=== PATIENT | female | born 1960 | race Caucasian/White ===

== ENCOUNTER 2016-10-03 22:39 | Emergency (ER) | payer OTHER ==
[~2016-10-03] VITALS: Ht 157.5 cm; Wt 51.8 kg
[2016-10-03 22:41] VITALS: TEMP 36.3; Ht 157.5 cm; Wt 51.8 kg
[2016-10-03] MEDS ORDERED: MoRPHine SULFATE 10 MG/ML CARP/VIAL IM STA (22:53)
[2016-10-03] MEDS ORDERED: ASPI81TA28 PO (23:07)
[2016-10-03] MEDS ORDERED: IBUP600T44 PO (23:08)
[2016-10-03] MEDS ORDERED: MULT-506 PO (23:09)
--- NOTE | 2016-10-03 23:18 | EMERGENCY ROOM VISIT NOTE ---
History Report prepared by Desiree: Mikaela Maharaj Under the Supervision of: Dr. Ariel Young M.D. First contact with patient: 22:44 Chief Complaint: ARM PAIN Stated Complaint: LEFT ARM PAIN MOVING INTO FACE, HX OF NERVE DAMAGE History of Present Illness The patient is a 56 year old female who presents to the Emergency Room with complaints of worsening left arm pain for the past 2 months. The patient has had multiple surgeries bilaterally for carpal tunnel. She states that after her most recent surgery on her left wrist, she developed some nerve damage pain in her arm. She has been following up with Dr. To of neurology. She had an EMG done last month and has been taking ibuprofen for her pain since that procedure. The patient states that recently her pain has become much worse. She notes bruising and swelling to her arm that's spreading toward her face. Tonight she was experiencing some facial numbness. Movement of the left arm exacerbates her pain. The patient describes her pain as shooting and rates her pain as a 10/10 in severity. She states that her arm "feels like bugs crawling all through me." She has been unable to sleep due to pain. The patient denies ever injuring that arm. She has some degenerative disc changes in her cervical spine. She denies any other pains including abdominal pain or chest pain. Source of History: patient Onset: 2 months ago Position: arm (left) Symptom Intensity: 10/10 Quality: other (shooting) Timing: worsening Modifying Factors (Worsening): movement Associated Symptoms: + numbness (facial), No abdominal pain, No chest pain Review of Systems All systems have been listed, reviewed, and are negative other than those previously mentioned. Please see Additional Medical History Sheet. Past Medical & Surgical Medical Problems: (1) Carpal Tunnel Syndrome Surgical Problems: (1) No history of previous surgery Family History FH: cancer FH: diabetes mellitus FH: heart disease FH: hypertension Social History Smoking Status: Current Every Day Smoker Alcohol Use: occasionally Marital Status: single Occupation Status: unemployed Current/Historical Medications Scheduled Aspirin (Aspirin Ec), 81 MG PO DAILY Multivitamin (Multivitamin), 1 TAB PO DAILY Scheduled PRN Ibuprofen (Motrin), 200-600 MG PO DIRECTED PRN for Pain Allergies Coded Allergies: Indomethacin (Unverified Allergy, Unknown, HIVES, 10/03/16) Physical Exam Vital Signs Date Time Temp Pulse Resp B/P Pulse Ox O2 Delivery O2 Flow Rate FiO2 10/04/16 00:12 68 16 128/68 96 10/03/16 22:41 36.3 90 18 156/97 98 Room Air Physical Exam GENERAL: Patient awake, alert, oriented x 3. Patient follows commands. Patient does not appear toxic. Patient is adequately hydrated and well- nourished. SKIN: No erythema, pallor, cyanosis or rash HEENT: Normal head, pupils equal, reactive to light and accommodation. Ears normal. Oral cavity and posterior pharynx appear normal. Neck: Without adenopathy, no neck vein distention. Tenderness along the posterior cervicals spine, no step offs. LUNGS: Clear to auscultation. No wheezes, no rales, no rhonchi. HEART: No murmurs. No gallops. No rubs ABDOMEN: Soft and nontender. EXTREMITIES: Marked tenderness to the left biceps and triceps area, appears slightly swollen, patient does have FROM, sensation intact distally, circulation intact. No signs of trauma. No pedal or pretibial edema. No calf or thigh tenderness. NEUROLOGIC: Cranial nerves II-XII within normal limits. No gross motor sensory function deficits. Medical Decision & Procedures ER Provider Diagnostic Interpretation: I reviewed the records from the patient's most recent EMG and MRI. Medications Administered Medications (Trade) Dose Ordered Sig/Satinder Route Start Time Stop Time Status Last Admin Dose Admin Morphine Sulfate (MoRPHine SULFATE INJ) 8 mg NOW STAT IM 10/03/16 22:53 10/03/16 22:54 DC 10/03/16 22:58 8 MG Oxycodone/ Acetaminophen (Percocet 5/ 325MG Home Pack) 1 homepack UD ONCE PO 10/04/16 00:00 10/04/16 00:01 DC 10/04/16 00:09 1 HOMEPACK Ondansetron HCl (ZOFRAN ODT 4MG Home Pack) 1 homepack UD ONCE PO 10/04/16 00:00 10/04/16 00:01 DC 10/04/16 00:09 1 HOMEPACK ED Course 2244: Past medical records reviewed. The patient was evaluated in room B8. A complete history and physical examination was performed. 2253: Morphine sulfate 8 mg IM 2349: I reassessed the patient at this time. She is feeling better and resting comfortably. I discussed the results and treatment plan with the patient. I answered all pertaining questions that she had. She expressed understanding and verbalized agreement. The patient will be discharged home. She has a follow-up appointment with pain management tomorrow and she also has an upcoming appointment with neurosurgery. 0000: Zofran 4 mg PO 1 homepack, Percocet 5/325 mg PO 1 homepack Medical Decision Differential diagnoses includes cervical radiculopathy, muscular spasm. The patient is now here with severe pain in her left arm and some radiation into her neck and face. The patient does not appear to be having a stroke or TIA. Outpatient records were evaluated. She has a history of cervical radiculopathy with significant degenerative changes in her cervical spine. EMG was also performed. Patient is scheduled to see pain management tomorrow. The patient had significant relief with 1 intramuscular injection of morphine. Patient was given a home pack of Percocet and Zofran. Impression Primary Impression: Cervical radiculopathy Scribe Attestation The scribe's documentation has been prepared under my direction and personally reviewed by me in its entirety. I confirm that the note above accurately reflects all work, treatment, procedures, and medical decision making performed by me. Departure Information Dispostion Home / Self-Care Referrals No Doctor, Assigned (PCP) Forms HOME CARE DOCUMENTATION FORM, IMPORTANT VISIT INFORMATION Patient Instructions My [facility] Additional Instructions 1 Percocet every 4 hours as needed for moderate to severe pain. 1 Zofran every 4 hours as needed for nausea. Do not drive or operate machinery while taking Percocet. Follow-up with Dr. Lamar tomorrow.
[2016-10-04] MEDS ORDERED: ONDANSETRON HOME PACK 4MG OD TAB PO ONE
[2016-10-04] MEDS ORDERED: PERCOCET HOME PACK PO ONE
[2016-10-04 00:12] VITALS: BP 128/68; PULSE 68; O2SAT 96
== END 2016-10-04 00:09 | disposition home or self-care (01) ==
LOC: C.EDB 22:40
DX: M54.12 Radiculopathy, cervical region (principal); M79.602 Pain in left arm; M79.89 Other specified soft tissue disorders; R20.0 Anesthesia of skin; Z79.82 Long term (current) use of aspirin; Z82.49 Family history of ischemic heart disease and other diseases of the circulatory system; Z83.3 Family history of diabetes mellitus; F17.200 Nicotine dependence, unspecified, uncomplicated

== ENCOUNTER 2016-10-20 14:13 | Emergency (ER) | payer OTHER ==
[~2016-10-20] VITALS: Ht 157.5 cm; Wt 50.0 kg
[~2016-10-20 14:13] MED LIST: ASPI81TA28 PO; IBUP600T44 PO; MULT-506 PO
[2016-10-20 14:22] VITALS: TEMP 36.7; Ht 157.5 cm; Wt 50.0 kg
[2016-10-20] MEDS ORDERED: DIPHTHERIA/TETANUS/PERTUSSIS 0.5 ML SYR/VIAL IM. ONE (14:30)
[2016-10-20 15:09] VITALS: BP 151/93; PULSE 70; O2SAT 100
--- NOTE | 2016-10-20 21:41 | EMERGENCY ROOM VISIT NOTE ---
History First contact with patient: 14:32 Chief Complaint: TETANUS SHOT NEEDED Stated Complaint: NEED A TETANUS SHOT History of Present Illness The patient is a 56 year old female who presents to the Emergency Room with complaints of injuries after being attacked by a rooster 2 days ago. The patient reports that she was wearing shorts, and the rooster pecked and scratched her her legs. The patient does not recall when her last tetanus shot was, and presents for a tetanus booster. She denies any significant pain or increasing redness at the sites of injury. Review of Systems 10 system review was performed and was negative except for pertinent positives and negatives as indicated in history of present illness Past Medical/Surgical History Medical Problems: (1) Carpal Tunnel Syndrome Surgical Problems: (1) No history of previous surgery Family History FH: cancer FH: diabetes mellitus FH: heart disease FH: hypertension Social History Smoking Status: Current Every Day Smoker Alcohol Use: occasionally Marital Status: single Occupation Status: unemployed Current/Historical Medications Scheduled Aspirin (Aspirin Ec), 81 MG PO DAILY Multivitamin (Multivitamin), 1 TAB PO DAILY Allergies Coded Allergies: Indomethacin (Unverified Allergy, Unknown, HIVES, 10/20/16) Physical Exam Vital Signs Date Time Temp Pulse Resp B/P (MAP) Pulse Ox O2 Delivery O2 Flow Rate FiO2 10/20/16 15:09 70 18 151/93 100 10/20/16 14:22 36.7 88 16 172/100 97 Room Air Physical Exam CONSTITUTIONAL: Healthy and well nourished. Alert and oriented X 3 with positive affect. HEENT: Normocephalic, atraumatic. Pupils equal, round and reactive. NECK: Full active range of motion without discomfort. MUSCULOSKELETAL: Full range of motion of all joints without discomfort. INTEGUMENTARY: The patient has several abrasions and small superficial puncture wounds on the thighs and legs. No overriding erythema, fluctuance or drainage noted. NEUROLOGIC: No focal neurologic deficits noted. Medical Decision & Procedures Medications Administered Medications (Trade) Dose Ordered Sig/Satinder Route Start Time Stop Time Status Last Admin Dose Admin Diphtheria/ Pertussis/Tetanus Vacc (Adacel Inj) 0.5 ml ONCE ONCE IM. 10/20/16 14:30 10/20/16 14:31 DC 10/20/16 14:44 0.5 ML ED Course Patient history and physical exam were performed. Nurse's notes were reviewed. Vital signs were reviewed, showing an elevated blood pressure 172/100. The patient is otherwise afebrile. The patient was administered Adacel IM. The patient was encouraged to follow-up with her PCP for recheck of her blood pressure. She was also instructed to watch for any developing infection at the sites of injury. Tylenol as needed for pain. The patient was happy with plan of care, and voiced understanding of all discharge instructions. Medical Decision Impression Primary Impression: Wounds, multiple open, lower extremity Additional Impressions: [id number] (DTP) vaccination Elevated blood pressure reading Departure Information Referrals No Doctor, Assigned (PCP) Patient Instructions My [facility] Problem Qualifiers Primary Impression: Wounds, multiple open, lower extremity Encounter type: initial encounter Laterality: unspecified laterality Qualified Codes: S81.809A - Unspecified open wound, unspecified lower leg, initial encounter
== END 2016-10-20 15:10 | disposition home or self-care (01) ==
LOC: C.EDB 14:15 → C.EDC 15:10
DX: S81.801A Unspecified open wound, right lower leg, initial encounter (principal); S81.802A Unspecified open wound, left lower leg, initial encounter; W61.99XA Other contact with other birds, initial encounter; Y92.89 Other specified places as the place of occurrence of the external cause; R03.0 Elevated blood-pressure reading, without diagnosis of hypertension; Z23 Encounter for immunization; Z80.9 Family history of malignant neoplasm, unspecified; Z83.3 Family history of diabetes mellitus; Z82.49 Family history of ischemic heart disease and other diseases of the circulatory system; F17.210 Nicotine dependence, cigarettes, uncomplicated; Z79.82 Long term (current) use of aspirin; Z79.899 Other long term (current) drug therapy

== ENCOUNTER 2017-09-02 13:18 | Emergency (ER) | payer OTHER ==
[~2017-09-02] VITALS: Ht 158.8 cm; Wt 50.6 kg
[~2017-09-02 13:18] MED LIST changes: -IBUP600T44 PO
[2017-09-02 13:23] VITALS: TEMP 37.2; Ht 158.8 cm; Wt 50.6 kg
[2017-09-02] MEDS ORDERED: ACETAMINOPHEN 500 MG TAB PO STA (13:43)
[2017-09-02 14:06] LABS: HEMATOCRIT 48.5 % (37-47); HEMOGLOBIN 16.8 g/dL (12.0-16.0); MEAN CELL VOLUME 97.8 fL (80-100); MEAN CORPUSCULAR HEMOGLOBIN 33.9 pg (25-34); MEAN CORPUSCULAR HGB CONC 34.6 g/dl (32-36); MEAN PLATELET VOLUME 10.4 fL (7.4-10.4); PLATELET COUNT 250 K/uL (130-400); RED CELL DISTRIBUTION WIDTH CV 13.4 % (11.5-14.5); RED CELL DISTRIBUTION WIDTH SD 47.9 fL (36.4-46.3); WHITE BLOOD COUNT 7.67 K/uL (4.8-10.8)
[2017-09-02 14:15] LABS: BLOOD UREA NITROGEN 17 mg/dl (7-18); CALCIUM 9.6 mg/dl (8.5-10.1); CARBON DIOXIDE 30 mmol/L (21-32); CREATININE 0.94 mg/dl (0.60-1.20); GLUCOSE 119 mg/dl (70-99); POTASSIUM 4.1 mmol/L (3.5-5.1); SODIUM 139 mmol/L (136-145)
--- NOTE | 2017-09-02 14:18 | DIAGNOSTIC IMAGING REPORT ---
SINGLE VIEW CHEST CLINICAL HISTORY: Atypical chest pain. Left shoulder pain. FINDINGS: An AP, portable, upright chest radiograph is obtained. No prior studies are available for comparison at the time of dictation. The examination is degraded by portable technique and patient rotation. The cardiomediastinal silhouette is unremarkable. The lungs appear hyperinflated. No airspace consolidation or pleural effusion is identified. Nipple shadows project over the lung bases. No pneumothorax is seen. The bony thorax is grossly intact. IMPRESSION: No active disease in the chest. Electronically signed by: Az Teran M.D. 09/02/2017 2:17 PM Dictated Date/Time: 09/02/2017 2:16 PM
[2017-09-02] MEDS ORDERED: OPTIRAY 320 IV PRN (14:30)
--- NOTE | 2017-09-02 15:41 | EMERGENCY ROOM VISIT NOTE ---
History Report prepared by Desiree: Ashutosh Manzanares Under the Supervision of: Dr. Az Samuel M.D. First contact with patient: 13:35 Chief Complaint: NEURO SYMPTOMS Stated Complaint: NUMBNESS LEFT SIDE,NECK PAIN,REAR HEAD PAIN History of Present Illness The patient is a 56 year old female who presents to the Emergency Room with complaints of worsening numbness to the left shoulder, left arm, and left head beginning a week ago. The patient states she was running outside with her grandchild when she fell and hit her head a week and a half ago. She reports she did not lose consciousness, and her symptoms began a few days after falling. The patient notes her symptoms began to worsen three days ago. She states she has a history of deteriorated disk disease, nerve damage, and arthritis in her neck. The patient denies surgeries, generalized or focal pain, and a history of spleen, liver, kidney, lung, or heart problem. She also denies a history of diabetes. The patient reports she has a history of smoking. The patient states she has not received injections for her neck before. Source of History: patient Onset: a week ago Position: head (left), shoulder (left), arm (left) Quality: numbness Timing: worsening Associated Symptoms: No LOC Note: Denies general or focal pain Review of Systems See HPI for pertinent positives & negatives. A total of 10 systems reviewed and were otherwise negative. Past Medical & Surgical Medical Problems: (1) Carpal Tunnel Syndrome Surgical Problems: (1) No history of previous surgery Family History FH: cancer FH: diabetes mellitus FH: heart disease FH: hypertension Social History Smoking Status: Current Every Day Smoker Alcohol Use: occasionally Marital Status: single Occupation Status: unemployed Current/Historical Medications Scheduled Multivitamin (Multivitamin), 1 TAB PO DAILY Allergies Coded Allergies: Indomethacin (Unverified Allergy, Unknown, HIVES, 09/02/17) Physical Exam Vital Signs Date Time Temp Pulse Resp B/P (MAP) Pulse Ox O2 Delivery O2 Flow Rate FiO2 09/02/17 16:57 71 18 161/91 100 09/02/17 15:46 64 18 166/87 100 Room Air 09/02/17 13:23 37.2 84 18 176/97 99 Room Air Physical Exam GENERAL: Patient is in no acute distress. HEENT: No acute trauma, normocephalic atraumatic, mucous membranes moist, no nasal congestion, no scleral icterus. NECK: No stridor, no adenopathy, no meningismus, trachea is midline. No bruits. Tender to the upper c-spine without a bony step-off. Tender to the musculature of the left posterior neck and left trapezius. LUNGS: Decreased breath sounds, no wheezes or rhonchi, breath sounds equal, no respiratory distress. HEART: Without murmurs gallops or rubs, regular rate and rhythm. ABDOMEN: Soft, nontender, bowel sounds positive, no hernias, no peritonitis. EXTREMITIES: No cyanosis or edema, full range of motion of all the joints without pain or difficulty, no signs for acute trauma. Strong left radial pulse. NEUROLOGIC: Oriented x 3, no acute motor or sensory deficits, no focal weakness. SKIN: No rash, no jaundice, no diaphoresis. Medical Decision & Procedures ER Provider Diagnostic Interpretation: Radiology results as stated below per my review and radiologist interpretation: CT ANGIOGRAM OF THE BRAIN COMBO; CT ANGIOGRAM OF THE NECK CLINICAL HISTORY: Fall. Neck pain. Numbness. COMPARISON STUDY: No priors. TECHNIQUE: Unenhanced axial CT scan of the brain is performed. Subsequently, following the IV administration of 116 of Optiray 320, CT angiogram of the head and neck was performed from the aortic arch to the vertex. Images are reviewed in the axial, sagittal, and coronal planes. 3-D MIPS images are created and assessed. IV contrast was administered without complication. All measurements were calculated based on NASCET criteria. A dose lowering technique was utilized adhering to the principles of ALARA. CT DOSE: 1305.11 mGy.cm FINDINGS: Brain parenchyma: The brain parenchyma is normal in appearance. There is no hemorrhage, mass effect, or evidence of acute territorial ischemia by CT criteria. There is no evidence of enhancing mass lesion on the angiogram phase images. The ventricles, sulci, and cisterns are normal in configuration. Liu-white matter differentiation is preserved. No extra-axial fluid collection is seen. Thoracic aorta: Visualized portions of the thoracic aorta are normal in caliber. The aortic arch demonstrates standard 3-vessel anatomy. Right carotid arterial system: The right common carotid artery is widely patent, as are the right internal and external carotid arteries. Left carotid arterial system: The left common carotid artery is widely patent, as are the left internal and external carotid arteries. Vertebral arteries: Widely patent and codominant. Subclavian arteries: Widely patent bilaterally. Intracranial vasculature: There is mild atherosclerotic calcification of the cavernous carotid arteries. There is a right posterior communicating artery. The internal carotid arteries are patent at the skull base, as are the anterior and middle cerebral arteries bilaterally. The vertebrobasilar system and posterior cerebral arteries are widely patent. The vertebral arteries are codominant. There is no aneurysm, high-grade stenosis, or focal vessel cut off seen throughout the intracranial circulation. Jugular veins: Widely patent bilaterally. Dural sinuses: Patent. Lung apices: Emphysematous change is seen in the upper lobes. Imaged upper lobe parenchyma is otherwise clear. Soft tissues: There is an indeterminant 11 x 8 mm ovoid nodule in the left anterior pharyngeal soft tissues deep to the thyroid cartilage seen on image #[id number]. The pharyngeal soft tissues otherwise normal as imaged noting angiographic technique. The oropharyngeal airway appears widely patent. The salivary and thyroid glands are normal in appearance. No cervical lymphadenopathy is seen. Skeletal structures: The skeletal structures are osteopenic. No depressed radial fracture is seen. The cervical spine appears intact noting multilevel spondylosis. Sinuses and mastoids: There is fluid in the left maxillary antrum. Mild mucosal thickening is seen within the right maxillary antrum, the ethmoid sinuses, and the sphenoid sinuses. The mastoid air cells are well pneumatized. IMPRESSION: 1. There is no hemorrhage, mass effect, or evidence of acute territorial ischemia by CT criteria. 2. Unremarkable CT angiogram of the brain. 3. Unremarkable CT angiogram of the neck. 4. Paranasal sinus disease as above. 5. Emphysema. 6. There is an indeterminant 11 x 8 mm ovoid nodule in the left anterior pharyngeal soft tissues deep to the thyroid cartilage. This is of indeterminate etiology and significance. Nonemergent ENT follow-up is recommended. Electronically signed by: Az Teran M.D. 09/02/2017 4:19 PM Dictated Date/Time: 09/02/2017 3:57 PM SINGLE VIEW CHEST CLINICAL HISTORY: Atypical chest pain. Left shoulder pain. FINDINGS: An AP, portable, upright chest radiograph is obtained. No prior studies are available for comparison at the time of dictation. The examination is degraded by portable technique and patient rotation. The cardiomediastinal silhouette is unremarkable. The lungs appear hyperinflated. No airspace consolidation or pleural effusion is identified. Nipple shadows project over the lung bases. No pneumothorax is seen. The bony thorax is grossly intact. IMPRESSION: No active disease in the chest. Electronically signed by: Az Teran M.D. 09/02/2017 2:17 PM Dictated Date/Time: 09/02/2017 2:[address] SCAN OF THE CERVICAL SPINE CLINICAL HISTORY: Fall. Neck pain. COMPARISON STUDY: No priors. TECHNIQUE: CT scan of the cervical spine is performed from the skull base to the upper thoracic spine. Images are reviewed in the axial, sagittal, and coronal planes. IV contrast was not administered for this examination. A dose lowering technique was utilized adhering to the principles of ALARA. FINDINGS: Skeletal structures: The skeletal structures are osteopenic. There is no evidence of fracture or subluxation involving the cervical spine. Vertebral body height is maintained. There is minimal anterolisthesis at C4-C5 and C5-C6. Alignment is otherwise preserved. There is straightening of the cervical lordosis. Anterior osteophytes are seen in the lower cervical region. The odontoid process and lateral masses are intact. The atlantoaxial articulation is preserved noting productive degenerative change. The spinous processes appear intact. There is mild to moderate multilevel cervical spondylosis. Uncovertebral and facet arthropathy are seen at several levels and contribute to multilevel neural foraminal stenosis. Intervertebral discs: There is only mild disc space narrowing seen at C5-C6 and C6-C7 the remaining disc spaces are maintained. Central canal: Grossly patent. Soft tissues: The prevertebral and paraspinous soft tissues are within normal limits. Calvarium: The visualized calvarium at the skull base appears intact. Brain parenchyma: Partially visualized brain parenchyma the skull base is within normal limits. Sinuses and mastoids: Trace mucosal thickening is seen in the sphenoid sinuses. The mastoid air cells are well pneumatized. Lung apices: Clear as visualized. IMPRESSION: 1. There is no evidence of fracture or subluxation involving the cervical spine. 2. Osteopenia and spondylotic change as above. Electronically signed by: Az Teran M.D. 09/02/2017 3:56 PM Dictated Date/Time: 09/02/2017 3:52 PM Laboratory Results 09/02/17 13:38 09/02/17 13:38 Test 09/02/17 13:38 09/02/17 16:00 Red Blood Count 4.96 M/uL (4.2-5.4) Mean Corpuscular Volume 97.8 fL (80-100) Mean Corpuscular Hemoglobin 33.9 pg (25-34) Mean Corpuscular Hemoglobin Concent 34.6 g/dl (32-36) RDW Standard Deviation 47.9 fL (36.4-46.3) RDW Coefficient of Variation 13.4 % (11.5-14.5) Mean Platelet Volume 10.4 fL (7.4-10.4) Anion Gap 4.0 mmol/L (3-11) Est Creatinine Clear Calc Drug Dose 53.4 ml/min Estimated GFR () 78.6 Estimated GFR (Non- 67.8 BUN/Creatinine Ratio 17.9 (10-20) Calcium Level 9.6 mg/dl (8.5-10.1) Magnesium Level 2.0 mg/dl (1.8-2.4) Troponin I < 0.015 ng/ml (0-0.045) Thyroid Stimulating Hormone (TSH) 0.894 uIu/ml (0.300-4.500) Lyme Disease IgG Antibody NEG (NEG) Lyme Disease IgM Antibody NEG (NEG) Urine Color YELLOW Urine Appearance CLEAR (CLEAR) Urine pH 6.5 (4.5-7.5) Urine Specific [place] 1.038 (1.000-1.030) Urine Protein NEG (NEG) Urine Glucose (UA) NEG (NEG) Urine Ketones NEG (NEG) Urine Occult Blood NEG (NEG) Urine Nitrite NEG (NEG) Urine Bilirubin NEG (NEG) Urine Urobilinogen NEG (NEG) Urine Leukocyte Esterase NEG (NEG) Laboratory results reviewed by me. ECG Per My Interpretation Indication: other (numbness) Rate (beats per minute): 71 Rhythm: sinus with SA Findings: no ectopy, other (No ST elevation. No PVC.) ED Course 1336: The patient was evaluated in room C01B. A complete history and physical exam was performed. 1343: Ordered Acetaminophen 1000mg PO - Patient refused. 1625: Reevaluated the patient. Discussed results and discharge instructions: she verbalized understanding and agreement. The patient is ready for discharge. Medical Decision The patient is a 56 year old female who presents to the ED with complaints of worsening numbness to the left shoulder, left arm, and left head. Differential diagnoses considered include cervical spine injury, carotid dissection, intracranial bleeding, skull fracture, VT, electrolyte imbalance, infection, thyroid disorder, nerve impingement. There is no leukocytosis or concerning anemia. No significant electrolyte abnormality or kidney failure. Lyme disease testing was negative. Urinalysis does not show infection. The patient appeared to be in a euthyroid state. Brain CT shows no acute bleed or mass-effect. Brain CT angio does not show any evidence for dissection or aneurysm. Neck CT angiogram does not show evidence for dissection. C-spine CT shows arthritis, no obvious fracture. EKG shows a normal sinus rhythm, no acute ischemia. Cardiac enzyme testing 1 is not consistent with acute cardiac injury. Chest film does not show pneumonia, mediastinal widening or pneumothorax. On exam, the patient has no evidence for neurovascular compromise to the left upper extremity. Patient did not want anything for pain. She was tender along the left posterior neck muscles and left trapezius. This is certainly consistent with musculoskeletal pain. The patient's pain and numbness appears to be from muscle spasm and nerve impingement. She is being discharged with outpatient follow-up. Heat, massage , rest were suggested. The patient was discharged. Medication Reconcilliation Current Medication List: was personally reviewed by me Blood Pressure Screening Patient's blood pressure: Elevated blood pressure Blood pressure disposition: Referred to PCP Impression Primary Impression: Left facial numbness Additional Impressions: Left arm numbness Headache Cervical disc disease Scribe Attestation The scribe's documentation has been prepared under my direction and personally reviewed by me in its entirety. I confirm that the note above accurately reflects all work, treatment, procedures, and medical decision making performed by me. Departure Information Dispostion Home / Self-Care Referrals No Doctor, Assigned (PCP) Forms HOME CARE DOCUMENTATION FORM, IMPORTANT VISIT INFORMATION Patient Instructions My [facility] Additional Instructions heat to the area may help liquid tylenol as discussed for pain massage may help follow with the [facility] md for a possible pain management referral return if worsening Problem Qualifiers
--- NOTE | 2017-09-02 15:58 | DIAGNOSTIC IMAGING REPORT ---
CT SCAN OF THE CERVICAL SPINE CLINICAL HISTORY: Fall. Neck pain. COMPARISON STUDY: No priors. TECHNIQUE: CT scan of the cervical spine is performed from the skull base to the upper thoracic spine. Images are reviewed in the axial, sagittal, and coronal planes. IV contrast was not administered for this examination. A dose lowering technique was utilized adhering to the principles of ALARA. FINDINGS: Skeletal structures: The skeletal structures are osteopenic. There is no evidence of fracture or subluxation involving the cervical spine. Vertebral body height is maintained. There is minimal anterolisthesis at C4-C5 and C5-C6. Alignment is otherwise preserved. There is straightening of the cervical lordosis. Anterior osteophytes are seen in the lower cervical region. The odontoid process and lateral masses are intact. The atlantoaxial articulation is preserved noting productive degenerative change. The spinous processes appear intact. There is mild to moderate multilevel cervical spondylosis. Uncovertebral and facet arthropathy are seen at several levels and contribute to multilevel neural foraminal stenosis. Intervertebral discs: There is only mild disc space narrowing seen at C5-C6 and C6-C7 the remaining disc spaces are maintained. Central canal: Grossly patent. Soft tissues: The prevertebral and paraspinous soft tissues are within normal limits. Calvarium: The visualized calvarium at the skull base appears intact. Brain parenchyma: Partially visualized brain parenchyma the skull base is within normal limits. Sinuses and mastoids: Trace mucosal thickening is seen in the sphenoid sinuses. The mastoid air cells are well pneumatized. Lung apices: Clear as visualized. IMPRESSION: 1. There is no evidence of fracture or subluxation involving the cervical spine. 2. Osteopenia and spondylotic change as above. Electronically signed by: Az Teran M.D. 09/02/2017 3:56 PM Dictated Date/Time: 09/02/2017 3:52 PM
--- NOTE | 2017-09-02 16:20 | DIAGNOSTIC IMAGING REPORT ---
CT ANGIOGRAM OF THE BRAIN COMBO; CT ANGIOGRAM OF THE NECK CLINICAL HISTORY: Fall. Neck pain. Numbness. COMPARISON STUDY: No priors. TECHNIQUE: Unenhanced axial CT scan of the brain is performed. Subsequently, following the IV administration of 116 of Optiray 320, CT angiogram of the head and neck was performed from the aortic arch to the vertex. Images are reviewed in the axial, sagittal, and coronal planes. 3-D MIPS images are created and assessed. IV contrast was administered without complication. All measurements were calculated based on NASCET criteria. A dose lowering technique was utilized adhering to the principles of ALARA. CT DOSE: 1305.11 mGy.cm FINDINGS: Brain parenchyma: The brain parenchyma is normal in appearance. There is no hemorrhage, mass effect, or evidence of acute territorial ischemia by CT criteria. There is no evidence of enhancing mass lesion on the angiogram phase images. The ventricles, sulci, and cisterns are normal in configuration. Liu-white matter differentiation is preserved. No extra-axial fluid collection is seen. Thoracic aorta: Visualized portions of the thoracic aorta are normal in caliber. The aortic arch demonstrates standard 3-vessel anatomy. Right carotid arterial system: The right common carotid artery is widely patent, as are the right internal and external carotid arteries. Left carotid arterial system: The left common carotid artery is widely patent, as are the left internal and external carotid arteries. Vertebral arteries: Widely patent and codominant. Subclavian arteries: Widely patent bilaterally. Intracranial vasculature: There is mild atherosclerotic calcification of the cavernous carotid arteries. There is a right posterior communicating artery. The internal carotid arteries are patent at the skull base, as are the anterior and middle cerebral arteries bilaterally. The vertebrobasilar system and posterior cerebral arteries are widely patent. The vertebral arteries are codominant. There is no aneurysm, high-grade stenosis, or focal vessel cut off seen throughout the intracranial circulation. Jugular veins: Widely patent bilaterally. Dural sinuses: Patent. Lung apices: Emphysematous change is seen in the upper lobes. Imaged upper lobe parenchyma is otherwise clear. Soft tissues: There is an indeterminant 11 x 8 mm ovoid nodule in the left anterior pharyngeal soft tissues deep to the thyroid cartilage seen on image #147. The pharyngeal soft tissues otherwise normal as imaged noting angiographic technique. The oropharyngeal airway appears widely patent. The salivary and thyroid glands are normal in appearance. No cervical lymphadenopathy is seen. Skeletal structures: The skeletal structures are osteopenic. No depressed radial fracture is seen. The cervical spine appears intact noting multilevel spondylosis. Sinuses and mastoids: There is fluid in the left maxillary antrum. Mild mucosal thickening is seen within the right maxillary antrum, the ethmoid sinuses, and the sphenoid sinuses. The mastoid air cells are well pneumatized. IMPRESSION: 1. There is no hemorrhage, mass effect, or evidence of acute territorial ischemia by CT criteria. 2. Unremarkable CT angiogram of the brain. 3. Unremarkable CT angiogram of the neck. 4. Paranasal sinus disease as above. 5. Emphysema. 6. There is an indeterminant 11 x 8 mm ovoid nodule in the left anterior pharyngeal soft tissues deep to the thyroid cartilage. This is of indeterminate etiology and significance. Nonemergent ENT follow-up is recommended. Electronically signed by: Az Teran M.D. 09/02/2017 4:19 PM Dictated Date/Time: 09/02/2017 3:57 PM
[2017-09-02 16:57] VITALS: BP 161/91; PULSE 71; O2SAT 100
== END 2017-09-02 16:55 | disposition home or self-care (01) ==
LOC: C.EDB 13:21 → C.EDC 16:55
DX: R20.0 Anesthesia of skin (principal); R51 Headache; M50.30 Other cervical disc degeneration, unspecified cervical region; F17.200 Nicotine dependence, unspecified, uncomplicated; Z83.3 Family history of diabetes mellitus; Z82.49 Family history of ischemic heart disease and other diseases of the circulatory system; Z88.6 Allergy status to analgesic agent

== ENCOUNTER 2017-09-07 11:08 | Emergency (ER) | payer OTHER ==
[~2017-09-07] VITALS: Ht 157.5 cm; Wt 51.0 kg
[~2017-09-07 11:08] MED LIST changes: -ASPI81TA28 PO
[2017-09-07 11:10] VITALS: TEMP 36.9; Ht 157.5 cm; Wt 51.0 kg
[2017-09-07 11:36] LABS: BASO % 0.6 %; BASO ABS # 0.05 K/uL (0-0.2); EOS % 1.6 %; EOS ABS # 0.13 K/uL (0-0.5); HEMATOCRIT 47.4 % (37-47); HEMOGLOBIN 16.8 g/dL (12.0-16.0); IG# 0.03 K/uL (0.00-0.02); LYMPH % 17.5 %; LYMPH ABS # 1.44 K/uL (1.2-3.4); MEAN CELL VOLUME 97.1 fL (80-100); MEAN CORPUSCULAR HEMOGLOBIN 34.4 pg (25-34); MEAN CORPUSCULAR HGB CONC 35.4 g/dl (32-36); MEAN PLATELET VOLUME 10.3 fL (7.4-10.4); MONO % 5.5 %; MONO ABS # 0.45 K/uL (0.11-0.59); NEUT % 74.4 %; NEUT ABS # 6.12 K/uL (1.4-6.5); PLATELET COUNT 242 K/uL (130-400); RED CELL DISTRIBUTION WIDTH CV 13.5 % (11.5-14.5); RED CELL DISTRIBUTION WIDTH SD 48.6 fL (36.4-46.3); WHITE BLOOD COUNT 8.22 K/uL (4.8-10.8)
[2017-09-07 12:00] LABS: CREATININE 1.05 mg/dl (0.60-1.20)
[2017-09-07 13:52] VITALS: BP 149/97; PULSE 65; O2SAT 99
--- NOTE | 2017-09-07 16:39 | EMERGENCY ROOM VISIT NOTE ---
History Report prepared by Desiree: Pari Lewis Under the Supervision of: Dr. Morgan Rasheed M.D. First contact with patient: 11:13 Chief Complaint: ABNORMAL LABS Stated Complaint: POTASIUM LEVELS HIGH SENT BY History of Present Illness The patient is a 56 year old female who presents to the Emergency Room with complaints of an episode of abnormal labs. The patient had blood work done on Sunday, two days ago. She reports she was called by her PCP last night regarding her abnormal blood work. Her labs showed her potassium level was 6.1. The patient states she was having routine blood work for "soft tissues around thyroid". She denies any history of kidney disease. She denies any chest pain, fever, or headaches. The patient reports intermittent palpitations which she believes is related to stress. Source of History: patient Onset: two days ago Position: other (generalized) Symptom Intensity: Potassium 6.1 Quality: other (abnormal labs) Timing: other (episode) Modifying Factors (Relieving): other (none) Associated Symptoms: No fevers, No headache, No chest pain Review of Systems See HPI for pertinent positives & negatives. A total of 10 systems reviewed and were otherwise negative. Past Medical & Surgical Medical Problems: (1) Carpal Tunnel Syndrome Surgical Problems: (1) No history of previous surgery Family History FH: cancer FH: diabetes mellitus FH: heart disease FH: hypertension Social History Smoking Status: Current Every Day Smoker Alcohol Use: occasionally Marital Status: single Occupation Status: unemployed Current/Historical Medications No Active Prescriptions or Reported Meds Allergies Coded Allergies: Indomethacin (Unverified Allergy, Unknown, HIVES, 09/07/17) Physical Exam Vital Signs Date Time Temp Pulse Resp B/P (MAP) Pulse Ox O2 Delivery O2 Flow Rate FiO2 09/07/17 13:52 65 149/97 99 09/07/17 12:58 70 162/82 98 Room Air 09/07/17 11:10 36.9 118 16 172/83 100 Room Air Physical Exam Constitutional: Vital signs reviewed. Eyes: Pupils are equal round reactive to light. Conjunctiva are noninjected. ENT: Pharynx is clear without erythema or exudate. Mucous membranes are moist. Neck supple without meningeal signs. Respiratory: Clear to auscultation bilaterally. Breath sounds are equal bilaterally. Cardiovascular: Regular rate and rhythm. No rubs or gallops. GI: Soft, nondistended and nontender. Bowel sounds are present. Musculoskeletal: No peripheral edema. No lower extremity tenderness. Integumentary: No cyanosis. Neurological: The patient is awake and alert. No focal deficits. Psychiatric: Normal affect. Medical Decision & Procedures Laboratory Results 09/07/17 11:25 Red Blood Count 4.88, Mean Corpuscular Volume 97.1, Mean Corpuscular Hemoglobin 34.4, Mean Corpuscular Hemoglobin Concent 35.4, Mean Platelet Volume 10.3, Neutrophils (%) (Auto) 74.4, Lymphocytes (%) (Auto) 17.5, Monocytes (%) (Auto) 5.5, Eosinophils (%) (Auto) 1.6, Basophils (%) (Auto) 0.6, Neutrophils # (Auto) 6.12, Lymphocytes # (Auto) 1.44, Monocytes # (Auto) 0.45, Eosinophils # (Auto) 0.13, Basophils # (Auto) 0.05 09/07/17 11:25 09/07/17 12:03 Test 09/07/17 11:25 White Blood Count 8.22 K/uL (4.8-10.8) Red Blood Count 4.88 M/uL (4.2-5.4) Hemoglobin 16.8 g/dL (12.0-16.0) Hematocrit 47.4 % (37-47) Mean Corpuscular Volume 97.1 fL (80-100) Mean Corpuscular Hemoglobin 34.4 pg (25-34) Mean Corpuscular Hemoglobin Concent 35.4 g/dl (32-36) Platelet Count 242 K/uL (130-400) Mean Platelet Volume 10.3 fL (7.4-10.4) Neutrophils (%) (Auto) 74.4 % Lymphocytes (%) (Auto) 17.5 % Monocytes (%) (Auto) 5.5 % Eosinophils (%) (Auto) 1.6 % Basophils (%) (Auto) 0.6 % Neutrophils # (Auto) 6.12 K/uL (1.4-6.5) Lymphocytes # (Auto) 1.44 K/uL (1.2-3.4) Monocytes # (Auto) 0.45 K/uL (0.11-0.59) Eosinophils # (Auto) 0.13 K/uL (0-0.5) Basophils # (Auto) 0.05 K/uL (0-0.2) RDW Standard Deviation 48.6 fL (36.4-46.3) RDW Coefficient of Variation 13.5 % (11.5-14.5) Immature Granulocyte % (Auto) 0.4 % Immature Granulocyte # (Auto) 0.03 K/uL (0.00-0.02) Anion Gap 3.0 mmol/L (3-11) Est Creatinine Clear Calc Drug Dose 47.3 ml/min Estimated GFR () 68.8 Estimated GFR (Non- 59.3 BUN/Creatinine Ratio 17.9 (10-20) Calcium Level 9.0 mg/dl (8.5-10.1) Laboratory results as reviewed by me. ECG Per My Interpretation Indication: other (hyperkalemia) Rate (beats per minute): 76 Rhythm: normal sinus Findings: other (no peaked T-wave, no widening of QRS, no ST elevation) ED Course 1114: The patient was evaluated in room C4. A complete history and physical exam was performed. 1203: Lab is repeating the potassium on the patient. 1347: I updated the patient on her test results. 1350: Upon reevaluation, the patient appeared to have improvement of her symptoms. I discussed kandy's findings with her. She verbalized agreement of the treatment plan. The patient was discharged home. Medical Decision This is a 56-year-old female who presents with abnormal test results. Differential diagnosis includes hemolysis, hyperkalemia, renal failure. I did perform a limited focused review of portions of the patient's old chart on the electronic medical record. The patient was seen September 02 for numbness to her left shoulder arm, and head. She had an unremarkable workup including a CT of brain, neck and angiogram. I did evaluate the patient as noted above. The patient was sent here because she had abnormal test results 2 days ago. Her potassium was reported at 6.1. She does state she has had some mild palpitations but attributes this to stress. She denies any chest pain or shortness of breath. IV access was established. I did order and personally review the patient's 12-lead EKG as described above. She has no signs of hyperkalemia. I did order and review the patient's blood work as noted in the electronic medical record. Potassium was hemolyzed and so it was repeated. It came back as 4.2. The patient was informed of her test results and advised to follow-up with her doctor. Medication Reconcilliation Current Medication List: was personally reviewed by me Blood Pressure Screening Patient's blood pressure: Elevated blood pressure Blood pressure disposition: Referred to PCP Impression Primary Impression: Abnormal blood chemistry test Additional Impression: Palpitations Scribe Attestation The scribe's documentation has been prepared under my direct and personally reviewed by me in its entirety. I confirm that the note above accurately reflects all work, treatment, procedures, and medical decision making performed by me. Departure Information Dispostion Home / Self-Care Prescriptions No Active Prescriptions or Reported Meds Referrals No Doctor, Assigned (PCP) Forms HOME CARE DOCUMENTATION FORM, IMPORTANT VISIT INFORMATION, WORK / SCHOOL INSTRUCTIONS Patient Instructions My [facility] Health Problem Qualifiers
== END 2017-09-07 13:53 | disposition home or self-care (01) ==
LOC: C.EDB 11:09 → C.EDC 13:53
DX: R79.89 Other specified abnormal findings of blood chemistry (principal); R00.2 Palpitations; R03.0 Elevated blood-pressure reading, without diagnosis of hypertension; F17.200 Nicotine dependence, unspecified, uncomplicated; Z88.8 Allergy status to other drugs, medicaments and biological substances